=== PATIENT | female | born 1970 | race Caucasian/White ===

== ENCOUNTER 2019-06-16 14:56 | Emergency (ER) | payer MEDICAID ==
[~2019-06-16] VITALS: Ht 154.9 cm; Wt 73.2 kg
[~2019-06-16 14:56] MED LIST: ALBU8.5H8 INH; BENZ-6 PO; CEPH-443 PO
[2019-06-16 15:17] VITALS: Ht 154.9 cm; Wt 73.2 kg
[2019-06-16] MEDS ORDERED: KETOROLAC 30 MG INJ IM STA (17:12)
[2019-06-16] MEDS ORDERED: KETOROLAC 30 MG INJ IV STA (17:23)
[2019-06-16 19:59] VITALS: BP 115/74; PULSE 57; RESP 20
--- NOTE | 2019-06-17 02:35 | ERD ---
ER Documentation Chief Complaint Chief Complaint pt c/o LUQ pain, 08/26 x2 days HPI 49-year-old female with hx of appendectomy 10 years ago, presents with complaint of left upper quadrant pain x2 days radiating to the back. Patient admits to nausea, denies vomiting. Admits to shortness of breath, chest pain, and cough. Has been taking ibuprofen with no relief in symptoms, last dose yesterday. She denies history of diabetes, hypertension, cardiac disease or previous heart attack. Patient is a non-smoker. At this time she rates her current pain as 10 out of 10. ROS All systems reviewed and are negative except as per history of present illness. Medications Home Meds Active Scripts Cephalexin* (Keflex*) 500 Mg Capsule, 500 MG PO BID for 7 Days, #14 CAP Prov:GITA MUÑOZ PA-C 06/16/19 Albuterol Sulfate* (Proair HFA*) 8.5 Gm Hfa.aer.ad, 2 PUFF INH Q6H PRN for WHEEZING AND SOB, #1 INHALER Prov:GITA MUÑOZ PA-C 06/16/19 Benzonatate* (Tessalon Perle*) 100 Mg Capsule, 100 MG PO Q8H PRN for COUGH, #30 CAP Prov:GITA MUÑOZ PA-C 06/16/19 Allergies Allergies: Coded Allergies: No Known Allergy (Unverified , 06/16/19) PMhx/Soc Medical and Surgical Hx: pt denies Medical Hx, pt denies Surgical Hx History of Surgery: Yes (, appendectomy) Hx Alcohol Use: No Hx Substance Use: No Hx Tobacco Use: No Smoking Status: Never smoker FmHx Family History: No diabetes, No coronary disease, No other Physical Exam Vitals Vital Signs Date Temp Pulse Resp B/P (MAP) Pulse Ox O2 O2 Flow FiO2 Time Delivery Rate 06/16/19 98.1 57 20 115/74 98 Room Air 19:59 (88) 06/16/19 97.5 76 16 104/74 97 15:17 (84) Physical Exam Constitutional: Well developed. Well nourished. No acute distress Head/Eyes: Atraumatic. Normocephalic. PERRL. EOMI ENT: Moist mucous membranes. Voice normal. Neck: Supple. No lymphadenopathy Cardiovascular: Regular rate and rhythm. No murmurs, rubs, or gallops. Distal pulses intact Respiratory: No respiratory distress. Normal breath sounds. No wheezes, rales, or rhonchi. Abdominal: Soft. TTP LUQ and left flank. no guarding, rebound, or rigidity. Non-distended. Back: Full range of motion. Questionable left CVA tenderness. Extremities: No edema, Full ROM Skin: Dry. No rashes. Warm Neurological: Alert and oriented X 3. Normal speech Psychiatric: Normal mood. Normal affect Result Diagram: 06/16/19 1740 06/16/19 1741 Results 24 hrs Laboratory Tests Test 06/16/19 17:35 06/16/19 17:40 06/16/19 17:41 POC Beta HCG, Qualitative NEGATIVE White Blood Count 9.9 10^3/ul Red Blood Count 4.33 10^6/ul Hemoglobin 12.2 g/dl Hematocrit 37.3 % Mean Corpuscular Volume 86.1 fl Mean Corpuscular Hemoglobin 28.2 pg Mean Corpuscular 32.7 g/dl Hemoglobin Concent Red Cell Distribution Width 12.9 % Platelet Count 326 10^3/UL Mean Platelet Volume 9.4 fl Immature Granulocytes % 0.300 % Neutrophils % 62.5 % Lymphocytes % 26.0 % Monocytes % 8.4 % Eosinophils % 2.1 % Basophils % 0.7 % Nucleated Red Blood Cells % 0.0 /100WBC Immature Granulocytes # 0.030 10^3/ul Neutrophils # 6.2 10^3/ul Lymphocytes # 2.6 10^3/ul Monocytes # 0.8 10^3/ul Eosinophils # 0.2 10^3/ul Basophils # 0.1 10^3/ul Nucleated Red Blood Cells # 0.0 10^3/ul Prothrombin Time 11.7 Sec Prothrombin Time Ratio 0.9 INR International 0.85 Normalized Ratio Activated Partial Thromboplast 29.3 Sec Time Urine Color YELLOW Urine Clarity SLIGHTLY CLOUDY Urine pH 5.0 Urine Specific [place] 1.023 Urine Ketones TRACE mg/dL Urine Nitrite NEGATIVE mg/dL Urine Bilirubin NEGATIVE mg/dL Urine Urobilinogen NEGATIVE mg/dL Urine Leukocyte Esterase TRACE [place]/ul Urine Microscopic RBC 3 /HPF Urine Microscopic WBC 4 /HPF Urine Squamous Epithelial Cells FEW /HPF Urine Mucus FEW /HPF Urine Hemoglobin NEGATIVE mg/dL Urine Glucose NEGATIVE mg/dL Urine Total Protein NEGATIVE mg/dl Sodium Level 141 mmol/L Potassium Level 4.0 mmol/L Chloride Level 105 mmol/L Carbon Dioxide Level 27 mmol/L Anion Gap 9 Blood Urea Nitrogen 14 mg/dl Creatinine 0.91 mg/dl Est Glomerular Filtrat > 60 mL/min Rate mL/min Glucose Level 99 mg/dl Calcium Level 9.5 mg/dl Total Bilirubin 0.7 mg/dl Direct Bilirubin 0.00 mg/dl Indirect Bilirubin 0.7 mg/dl Aspartate Amino 26 IU/L Transf (AST/SGOT) Alanine 30 IU/L Aminotransferase (ALT/SGPT) Alkaline Phosphatase 73 IU/L Troponin I < 0.012 ng/ml Total Protein 7.1 g/dl Albumin 4.4 g/dl Globulin 2.70 g/dl Albumin/Globulin Ratio 1.62 Lipase 68 U/L Current Medications Medications Dose Sig/[place] Start Time Status Last (Trade) Ordered Route PRN Stop Time Admin Dose Reason Admin Ketorolac 30 mg ONCE STAT 06/16/19 DC Tromethamine IM 17:12 (Toradol) 06/16/19 17:24 Ketorolac 30 mg ONCE STAT 06/16/19 DC 06/16/19 Tromethamine IV 17:23 17:47 (Toradol) 06/16/19 17:25 Procedures/MDM EKG: Read by Dr. Regalado Rate/Rhythm: Normal Sinus Rhythm QRS, ST, T-waves: No changes consistent w/ acute ischemia Impression: No evidence of ischemia or arrhythmia PROCEDURE: CT abdomen and pelvis without contrast. FINDINGS: The lung bases are clear of any infiltrate or nodule. Calcified granulomata are present in the left lower lobe. No effusion is seen. The liver is of normal size, contour and attenuation with no mass or ductal d ilatation. Gallbladder is absent. No splenic, adrenal or pancreatic abnormalities present. Kidneys are of normal size and contour. No hydronephrosis, calculus or mass Is seen. Ureters are of normal course and caliber with no stone. No bladder mass or stone is present. Uterus and ovaries appear normal. There is no aneurysm. No adenopathy is present. No bowel mass or obstruction is present. The appendix is normal. No phlegmon, ascites or pneumoperitoneum is visualized. The osseous structures are intact. IMPRESSION: No evidence of urolithiasis, obstructive uropathy, diverticulitis or appendicitis. Post cholecystectomy. Old granulomatous disease. PROCEDURE: XR Chest 1 View. FINDINGS: Support lines and tubes: None. Mediastinum: Within normal limits of size. Lungs: Mildly elevated right hemidiaphragm. Mild peribronchial cuffing in the central lungs. No consolidations. No pneumothorax. Osseous structures: Intact. Other: None. IMPRESSION: Peribronchial cuffing in the central lungs bilaterally. Finding may reflect bronchitis. Mildly elevated right hemidiaphragm. MDM: This is an otherwise healthy 49-year-old female who presents to the emergency room for evaluation of left upper quadrant pain x2 days. On exam patient is tender to both the left upper quadrant, left flank, left CVA region. Given patient complaining of shortness of breath and chest pain as well as left- sided flank and abdominal pain, cardiac work-up as well as acute abdomen work-up performed. EKG normal sinus rhythm, troponin negative, CT abdomen pelvis negative for nephrolithiasis, cholecystitis or lithiasis, diverticulitis, or other acute abdominal finding. Chest x-ray did show peribronchial cuffing which may just bronchitis. UA did show trace leukocytes. Will be treating this patient for acute bronchitis as well as cystitis, patient will receive prescription for Keflex, Tessalon, albuterol. I have advised this patient to return to the emergency department within 8 to 12 hours if left upper quadrant pain does not improve or worsens. At this time I have very low suspicion for acute cardiopulmonary abnormality nor do I suspect acute abdominal process at this time. Patient endorses improvement of pain at time of reevaluation, and is resting comfortably. Discussed findings and treatment plan with patient, she expresses verbal understanding and agreement to treatment plan. All questions addressed and answered. Patient is advised to follow-up with PCP within the next 1 to 2 days for further work-up and/or management. Departure Diagnosis: Primary Impression: Bronchitis Additional Impression: UTI (urinary tract infection) Urinary tract infection type: acute cystitis Hematuria presence: without hematuria Qualified Codes: N30.00 - Acute cystitis without hematuria Condition: Stable Patient Instructions: Understanding Urinary Tract Infections (UTIs), Bronchitis, No Antibiotic (Adult) Additional Instructions: These return to the ED within 8 to 12 hours if symptoms persist or worsen despite use of treatment. GITA MUÑOZ PA-C Jun 17, 2019 02:32
== END 2019-06-16 20:01 | disposition home or self-care (01) ==
LOC: FTE 14:56
DX: N30.00 Acute cystitis without hematuria (principal); J40 Bronchitis, not specified as acute or chronic
CPT/HCPCS: 36415; 71045; 74176; 80053; 81001; 81025; 83690; 84484; 85025; 85610; 85730; 93005; 96374; J1885; Z7502